=== PATIENT | female | born 1995 | race Native Hawaiian/Other Pacific Islander ===

== ENCOUNTER 2020-11-27 19:41 | Outpatient (CLI) | payer OTHER | END 2020-11-27 21:56 | disposition home or self-care (01) | LOC: LAB 19:41 | PROVIDERS: ATTEND Family Medicine | DX: M19.90 Unspecified osteoarthritis, unspecified site (principal); E55.9 Vitamin D deficiency, unspecified | CPT/HCPCS: 82306; 84550; 86140 ==

== ENCOUNTER 2021-02-13 12:15 | Outpatient (CLI) | payer OTHER ==
[2021-02-13 13:14] LABS: PLATELET COUNT 593 K/uL (152-353)
[2021-02-13 13:53] LABS: POTASSIUM 4.2 mmol/L (3.6-5.2)
== END 2021-02-13 21:48 | disposition home or self-care (01) ==
LOC: LABW 12:15
PROVIDERS: ATTEND Physician Assistant
DX: L40.59 Other psoriatic arthropathy (principal); M25.462 Effusion, left knee; M54.5 Low back pain; Z79.899 Other long term (current) drug therapy
CPT/HCPCS: 36415; 80053; 80074; 85008; 85027; 85652; 86140; 86701; 86702; 87389